=== PATIENT | female | born 1950 | race African-American/Black ===

== ENCOUNTER 2017-09-26 12:27 | Emergency (ER) | payer OTHER ==
[~2017-09-26] VITALS: Ht 167.6 cm; Wt 83.9 kg
[2017-09-26] MEDS ORDERED: METFORMIN HCL1000 M1 ORAL (12:39)
--- NOTE | 2017-09-26 13:14 | Diagnostic Imaging Report ---
Indication: Right knee pain Technique: 3 views of the right knee Comparison: None Findings: There is questionably a small suprapatellar effusion. There is prepatellar skin thickening. There is a small superior pole patellar traction osteophyte. No acute fractures. No dislocations. The joint spaces are preserved. Impression: Questionable small effusion Evidence of prepatellar soft tissue swelling. Correlate with clinical findings Mild degenerative changes, as described No acute bony trauma
[2017-09-26] MEDS ORDERED: Norco 5mg/325mg tab ORAL ONE (13:15)
--- NOTE | 2017-09-26 13:50 | Emergency Room Report ---
History of Present Illness General Chief Complaint: Lower Extremity Injury Source: Patient (Madeleine Morrow) Present Illness HPI 67-year-old female presents to the emergency department complaining of 10 out of 10 in severity localized pain to the lateral aspect of the right knee since this morning. Patient reports acute onset when she was attempting to sit down. Patient states that she felt and heard a pop and had significant pain right away. Patient reports pain is exacerbated upon weight-bearing or attempts to straighten the leg or lifted. Patient denies previous injury at this extremity. Patient reports that she had knee surgery on the alternate knee. Denies numbness tingling or loss of sensation or gross motor movements of the extremities, incontinence of bowel or bladder. Denies CP, Palpitations, LOC, AMS , dizziness, Changes in Vision, weakness or a sudden severe headache. (Madeleine Morrow) Allergies: Coded Allergies: No Known Allergies (Unverified , 09/26/17) Patient History Past Medical History: see triage record Past Surgical History: none Pertinent Family History: none Last Menstrual Period: 20 yrs ago Reviewed Nursing Documentation: PMH: Agreed; PSxH: Agreed (Madeleine Morrow) Nursing Documentation-PMH Past Medical History: No History, Except For Hx Diabetes: Yes (Madeleine Morrow) Review of Systems All Other Systems: negative except mentioned in HPI (Madeleine Morrow) Physical Exam Vital Signs Date Time Temp Pulse Resp B/P (MAP) Pulse Ox O2 Delivery O2 Flow Rate FiO2 09/26/17 12:37 97.7 67 18 126/67 97 Room Air 97.7 Sp02 EP Interpretation: reviewed, normal General Appearance: no apparent distress, alert, GCS 15, non-toxic Head: normocephalic, atraumatic Eyes: bilateral eye normal inspection, bilateral eye PERRL ENT: hearing grossly normal, normal voice Neck: full range of motion Respiratory: lungs clear, normal breath sounds, speaking full sentences Cardiovascular #1: regular rate, rhythm, no edema, normal capillary refill Cardiovascular #2: 2+ dorsalis pedis (R) Musculoskeletal: back normal, normal range of motion, tender - Lateral right knee, and mildly anteriorly, no obvious increase in laxity upon stressing the ligaments. mild swelling noted. otherwise no obvious deformity. Neurologic: alert, oriented x3, responsive, motor strength/tone normal, sensory intact, speech normal, grossly normal Psychiatric: judgement/insight normal Skin: normal color, no rash, warm/dry, well hydrated (Madeleine Morrow) Medical Decision Making PA Attestation Dr. armijo is my supervising Physician whom patient management has been discussed with. (Madeleine Morrow) Medicare Attestation The history of Gayla Cook has been reviewed and management options for her have been examined and discussed by Calin Hunt. I have personally examined and interviewed the patient. (Calin Hunt MD) Diagnostic Impression: Primary Impression: Knee LCL sprain Qualified Codes: S83.421A - Sprain of lateral collateral ligament of right knee, initial encounter Additional Impression: Arthritis of knee, right ER Course 67-year-old female presents to the emergency department complaining of 10 out of 10 in severity localized pain to the lateral aspect of the right knee since this morning. Patient reports acute onset when she was attempting to sit down. Patient states that she felt and heard a pop and had significant pain right away. Patient reports pain is exacerbated upon weight-bearing or attempts to straighten the leg or lifted. Patient denies previous injury at this extremity. Patient reports that she had knee surgery on the alternate knee. Denies numbness tingling or loss of sensation or gross motor movements of the extremities, incontinence of bowel or bladder. Denies CP, Palpitations, LOC, AMS , dizziness, Changes in Vision, weakness or a sudden severe headache. Ddx considered but are not limited to Fracture, dislocation, contusion, Sprain/ Strain/Spasm, Epidural abscess, Neoplastic mets. Vital signs: are WNL, pt. is afebrile H&PE are most consistent with musculoskeletal injury will perform imaging to r/ o fractures/dislocations. ORDERS: - X-ray Right knee - negative for fx, Dislocation, or significant soft tissue injury, per preliminary read in ED, and signed by HOLLY Morrow, my supervising physician has reviewed, and agrees with my interpretation. ED INTERVENTIONS: - [place] PO --Knee Immobilizer splint applied to the right Knee by composite bond technician. Pt. remains neurovascularly intact. --Patient is provided with crutches and instructed on their use DISCHARGE: At this time pt. is stable for d/c to home. Will provide printed patient care instructions, and any necessary prescriptions. Care plan and follow up instructions have been discussed with the patient prior to discharge. (Madeleine Morrow) Other X-Ray Diagnostic Results Other X-Ray Diagnostic Results : X-Ray ordered: Right Knee # of Views/Limited Vs Complete: 3 View Indication: Pain EP Interpretation: Yes PA Xray: Interpretation reviewed, by supervising MD, and agrees with findings. Interpretation: no dislocation, no soft tissue swelling, no fractures, other - degenerative changes/ arthritis Impression: No acute disease Electronically Signed by: Madeleine Morrow PA-C (Madeleine Morrow) Last Vital Signs Date Time Temp Pulse Resp B/P (MAP) Pulse Ox O2 Delivery O2 Flow Rate FiO2 09/26/17 13:19 97.7 09/26/17 12:37 67 18 126/67 97 Room Air (Madeleine Morrow) Disposition: HOME, SELF-CARE Condition: Stable Scripts Diclofenac Sodium (VOLTAREN) 100 Gm Gel..gram. 1 APPLIC TP TID, #100 GM Prov: Madeleine Morrow 09/26/17 Ibuprofen* (MOTRIN*) 600 Mg Tablet 600 MG ORAL THREE TIMES A DAY, #20 TAB 0 Refills Prov: Madeleine Morrow 09/26/17 Referrals: NON PHYSICIAN (PCP) Departure Forms: Return to Work Return to Work Date: Sep 30, 2017 Work Restrictions: No Prolonged Standing Other Restrictions: light duty x 1 week. May return to full duty sooner if symptoms resolve. Return to Full Activity: Oct 07, 2017 Patient Instructions: Knee Sprain Additional Instructions: Take medications as directed. Follow up with an PUMPER GAUGER APPRENTICE in 3-5 days, even if your symptoms have resolved. If symptoms persist MRI may be required at the discretion of your PCP or Ortho Specialist. --Please review list of primary care clinics, if you do not already have a primary care provider who can give you an Orthopedic Referral. Return sooner to ED if new symptoms occur, or current symptoms become worse. - Please note that this Emergency Department Report was dictated using [employer] machine operator technology software, occasionally this can lead to erroneous entry secondary to interpretation by the dictation equipment. Madeleine Morrow Sep 26, 2017 13:50 Calin Hunt MD Sep 28, 2017 06:39
[2017-09-26] MEDS ORDERED: VOLTAREN100 G1 TP (13:52)
[2017-09-26] MEDS ORDERED: IBUPROFEN600 MG ORAL (13:52)
[2017-09-26 14:13] VITALS: BP 126/67
== END 2017-09-26 14:14 | disposition home or self-care (01) ==
LOC: EMR 12:45
DX: S83.421A Sprain of lateral collateral ligament of right knee, initial encounter (principal); M17.11 Unilateral primary osteoarthritis, right knee; X58.XXXA Exposure to other specified factors, initial encounter; Y93.9 Activity, unspecified; Y92.9 Unspecified place or not applicable; E11.9 Type 2 diabetes mellitus without complications
CPT/HCPCS: 99283